=== PATIENT | female | born 1990 ===

== ENCOUNTER 2016-09-12 12:04 | Outpatient (CLI) | payer OTHER, MEDICAID ==
[2016-09-12 12:31] VITALS: BMI 29.2
== END 2016-09-12 13:10 | disposition home or self-care (01) ==
LOC: FBCOUT 12:04 → FBC 12:04 → FBCOUT 13:10
PROVIDERS: ATTEND Family Medicine
DX: O46.90 Antepartum hemorrhage, unspecified, unspecified trimester (principal); Z3A.00 Weeks of gestation of pregnancy not specified
CPT/HCPCS: 59025; 81002; G0463

== ENCOUNTER 2016-09-29 06:44 | Inpatient (IN) | payer OTHER, MEDICAID ==
[2016-10-01] MEDS ORDERED: OXYTOCIN IN LR 500 ML IV ONE ×2 (06:51→07:22)
[2016-10-01] MEDS ORDERED: IV START KIT ONE (07:21)
[2016-10-01] MEDS ORDERED: OXYTOCIN 10 UNITS/ML VIAL ONE (07:21)
[2016-10-01] MEDS ORDERED: LIDOCAINE 1% (PRES FREE) 30 ML VIAL ONE (07:22)
[2016-10-01] MEDS ORDERED: LACTATED RINGERS 2,000 ML ONE (07:22)
[2016-10-01] MEDS ORDERED: EPIDURAL PUMP SET ONE (07:22)
[2016-10-01] MEDS ORDERED: FENTANYL/ROPIVACAINE EPIDURAL 250 ML EP ONE (07:22)
[2016-10-01] MEDS ORDERED: MINERAL OIL 25 ML BOT ONE (07:22)
[2016-10-01] MEDS ORDERED: PUMP TUBING ONE (07:22)
[2016-10-01] MEDS ORDERED: LIDOCAINE Viscous 2% 15 ML UDCUP ONE (07:22)
[2016-10-01] MEDS: LACTATED RINGERS 1,000 ML IV SCH ×3 (07:30→19:45)
[2016-10-01 08:12] LABS: HEMATOCRIT 39.9 % (37.0-47.0); HEMOGLOBIN 13.3 gm/l (12.0-16.0); MEAN CELL VOLUME 88.5 fl (81.0-99.0); MEAN CORPUSCULAR HEMOGLOBIN 29.5 pg (27.0-31.0); MEAN CORPUSCULAR HGB CONC 33.3 g/dl (33.0-37.0); RED CELL DISTRIBUTION WIDTH 12.4 % (11.5-14.5)
--- NOTE | 2016-10-01 08:17 | PCMAN ---
OB Admission Note - History : 4 Term: 3 Livin EDC:: 09/29/16 Gestational Age (weeks): 40 Days (#/7): 2 Admit Cervical Dilation:: 7, stretchy Admit Cervical Effacement (%):: 60 Admit Station:: -1 Membrane Status: Intact Contractions: Yes Contraction Frequency:: q 2-5 minutes Heart Rate:: 140 Status:: category I EFW:: 9 pounds Summary of Course:: 26 yr old at 40 2/7 weeks with prolonged early labor phase with significant dilation and pt desire for pain control for delivery. Admitting for epidural for pain control and then AROM for delivery. Pt is GBS negative. - Labs Blood Type: A (+) positive Hct/Hgb:: 12.7/38.5 Rubella Status: Equivocal GBS Status: Negative Abnormal Labs: None
[2016-10-01] MEDS ORDERED: DIPHENHYDRAMINE HCL 50 MG/1 ML VIAL IV PRN (08:30)
[2016-10-01] MEDS ORDERED: METOCLOPRAMIDE HCL 5 MG/ML 2ML VIAL IV PRN (08:30)
[2016-10-01] MEDS ORDERED: NALOXONE HCL 0.4 MG/ML VIAL IV PRN (08:30)
[2016-10-01] MEDS ORDERED: FENTANYL/ROPIVACAINE EPIDURAL 250 ML EP SCH (08:30)
[2016-10-01] MEDS ORDERED: SODIUM CHLORIDE 0.9% 500 ML IV PRN (08:30)
[2016-10-01] MEDS ORDERED: NALBUPHINE HCL 20 MG/ML AMP IV PRN (08:30)
[2016-10-01] MEDS ORDERED: ONDANSETRON 4 MG/2ML 2 ML VIAL IV PRN (08:30)
[2016-10-01] MEDS ORDERED: EPHEDRINE SULFATE 50 MG/ML 1ML VIAL IV PRN (08:30)
[2016-10-01] MEDS ORDERED: LACTATED RINGERS 500 ML IV PRN (08:30)
[2016-10-01 08:32] VITALS: BMI 30.6
[2016-10-01] MEDS ORDERED: BUPIVACAINE 0.25% (PRES FREE) 30 ML VIAL ONE (08:32)
[2016-10-01] MEDS ORDERED: EPIDURAL PROCEDURE TRAY ONE (08:32)
--- NOTE | 2016-10-01 13:28 | PCMDEL ---
Delivery Note - Labor 1st stage (hr/min):: 3 hr/ 8 min 2nd stage (hr/min):: 0 hr/ 13 min 3rd stage (hr/min):: 0 hr/ 6 min Total (hr/min):: 3 hr/ 27 min Pushed (hr/min):: 0 hr/ 5 min - Delivery Delivery (Date): 10/01/16 Delivery (Time): 13:06 Gender: Male Presentation: Cephalic Position: OA Umbilical Cord: 3 Vessel Delayed Cord Clamping:: > 3 min 1 Minute Total: 5 5 Minute Total: 5 Placenta:: complete, spontaneous EBL:: 100 Perineum:: intact Suture:: n/a Anesthesia/Meds:: epidural Length ROM:: 4 hr /3 min Comments:: 26 yr old G4 now P4 at 40 2/7 weeks. after AROM/epidural.
[2016-10-01] MEDS ORDERED: LANOLIN 50 APPLIC/7G TUBE TP PRN (13:30)
[2016-10-01] MEDS ORDERED: BENZOCAINE/MENTHOL 60 APPLIC/BOT TP PRN (13:30)
[2016-10-01] MEDS ORDERED: OXYCODONE HCL 5 MG TABLET PO PRN (13:30)
[2016-10-01] MEDS: IBUPROFEN 800 MG TABLET PO PRN ×2 (14:54→20:15)
[2016-10-02] MEDS: IBUPROFEN 800 MG TABLET PO PRN ×2 (04:16→11:54)
[2016-10-02 06:20] LABS: HEMATOCRIT 32.6 % (37.0-47.0); HEMOGLOBIN 10.9 gm/l (12.0-16.0)
--- NOTE | 2016-10-02 09:52 | PDOC39B ---
Hospital Course: ADMIT DATE: 10/01/16 DISCHARGE DATE: 10/02/2016 ADMISSION DIAGNOSES: Induction of labor, postdates PROCEDURES: Normal spontaneous vaginal delivery HISTORY OF PRESENT ILLNESS: 26 year old G4 T3 L3 at 40 weeks 2 days presenting with prodromal labor to 7 cm dilation, history of precipitous deliveries, and 2 days over due date. HOSPITAL COURSE: The patient was given epidural and artificially ruptured, which brought on labor and normal vaginal delivery. By day of discharge the patient is ambulating, eating, voiding, and passing flatus without difficulty. Pain is controlled and lochia is appropriate. She is . - Physical Exam Vital Signs: Temp Pulse Resp BP Pulse Ox 97.5 F 83 16 104/78 10/02/16 09:20 10/02/16 09:20 10/02/16 09:20 10/02/16 09:20 General: Afebrile Psych/Mental Status: Mood/Affect Appropriate, Judgment/Insight Intact, Bonding Well Neurological: Grossly Intact, Alert, Oriented x 4, Normal Gait, Normal Speech, Normal Reflexes, Cranial Nerves 3-12 Intact HEENT: Atraumatic, PERRLA, EOMI, Mucous membr. moist/pink Lungs: Clear to Auscultation Bilaterally, Normal Air Movement Cardiovascular: Regular Rate and Rhythm, Normal S1, Normal S2 Breast: Soft, Skin intact Fundus: Firm, Below Umbilicus Abdomen: Normal Bowel Sounds Genitourinary: Normal Female Genitalia Lochia: Light Rectal Exam: Deferred Extremities: Full ROM, Normal Cap Refill, Normal Pulses Skin: Normal Color, Warm, Dry, Intact - Discharge Diagnosis (1) Normal spontaneous vaginal delivery Status: Acute - Discharge Plan Condition: Good Disposition: Home Additional Instructions: Discharge home with infant today when > 24 hrs of age. Vaginal rest times 6 weeks[address] Follow up with Dr. Ayala in office for 6 weeks check up at 10 am. Prescriptions: Ibuprofen [IBUPROFEN 800 MG TABLET (SHF)] 800 mg PO Q6H PRN #90 tablet PRN Reason: Pain (Mild) Hydrocodone Bit/Acetaminophen [NORCO 5/325 MG TABLET (SHF)] 1 - 2 tab PO Q4H PRN #20 tablet PRN Reason: Pain (Moderate) Vit/Iron Fumarate/FA [ Tablet] 1 each PO DAILY #100 tablet Follow-Up: Cally Ayala MD [Staff Physician] - 11/11/16 10:00 am
[2016-10-02] MEDS: DOCUSATE SODIUM 100 MG CAPSULE PO PRN (11:55)
[2016-10-02] MEDS: HYDROCODONE/ACETAMINOPHEN 5/325MG TABLET PO PRN (11:55)
[2016-10-03] MEDS: HYDROCODONE/ACETAMINOPHEN 5/325MG TABLET PO PRN ×2 (00:01→10:28)
[2016-10-03] MEDS: IBUPROFEN 800 MG TABLET PO PRN ×2 (00:01→10:29)
[2016-10-03 07:36] VITALS: BP 98/55
--- NOTE | 2016-10-03 09:44 | PDOC36 ---
Provider Note Subject: Addendum Note: 26 yr old who had originally been discharged yesterday. 's CCHD screen was abnormal and work up had shown his heart was still in transitioning phase and had been advised to stay overnight and re-check his screen per Pediatric Cardiology recommendation. Proceeding with planned discharge home today 10-03-2016.
[2016-10-03] MEDS: DOCUSATE SODIUM 100 MG CAPSULE PO PRN (10:28)
== END 2016-10-03 10:58 | disposition home or self-care (01) | DRG 775 ==
LOC: EDSTATUS 06:44 → FBC 10-01 06:45 → UNDOADMIN 10-01 06:45 → FBC 10-01 07:05
PROVIDERS: ADMIT Family Medicine; ATTEND Family Medicine
PROC: 10E0XZZ Delivery of Products of Conception, External Approach (ICD-10-PCS; principal; 2016-10-01)
PROC: 10907ZC Drainage of Amniotic Fluid, Therapeutic from Products of Conception, Via Natural or Artificial Opening (ICD-10-PCS; 2016-10-01)
DX: O62.3 Precipitate labor (principal); O48.0 Post-term pregnancy; O09.43 Supervision of pregnancy with grand multiparity, third trimester; Z37.0 Single live birth; Z3A.40 40 weeks gestation of pregnancy